=== PATIENT | male | born 1970 | race Caucasian/White ===

== ENCOUNTER 2018-07-09 05:14 | Inpatient (IN) ==
[2018-07-09] MEDS ORDERED: ceFAZolin 2 GM IV; once IV.SIG PRN (05:52)
[2018-07-09] MEDS ORDERED: Chlorhexidine Gluconate 2% 1 Pack (2 Cloths) TOPICAL ONE (05:57)
[2018-07-09] MEDS ORDERED: Metoprolol Tartrate 25 MG Tablet PO ONE (05:57)
[2018-07-09] MEDS ORDERED: Sodium Chlor 0.9% Inj 500 ML IV.SIG SCH (06:00)
[2018-07-09] MEDS ORDERED: Bupivacaine/Epinephrine Inj 0.25% 50 ML Vial ONE (07:05)
[2018-07-09] MEDS ORDERED: Succinylcholine Inj 100 MG/5 ML Syringe IV.PUSH ONE (07:21)
[2018-07-09] MEDS ORDERED: Lidocaine PF 1% Inj 5 ML Syringe OTHER ONE (07:21)
[2018-07-09] MEDS ORDERED: Sugammadex Inj 200 MG/2 ML Vial IV.PUSH ONE (08:30)
[2018-07-09] MEDS ORDERED: HYDROmorphone PF Inj 2 MG/ML Vial ONE (09:38)
[2018-07-09] MEDS ORDERED: diphenhydrAMINE HCl 12.5 MG/5 ML Elixir UDC PO PRN (09:47)
[2018-07-09] MEDS ORDERED: Acetaminophen-HYDROcodone 325/7.5 Liq 15 ML UDC PO PRN ×2 (09:47)
[2018-07-09] MEDS ORDERED: Post-op Orders (for Pharmacy) OTHER STA (10:00)
--- NOTE | 2018-07-09 10:26 | MP ---
cc: Mal Watson MD DATE OF OPERATION: 07/09/2018 PREOPERATIVE DIAGNOSES: Morbid obesity with a BMI of 43, complicated by essential hypertension, hypercholesterolemia. POSTOPERATIVE DIAGNOSES: Morbid obesity with a body mass index of 43, complicated by essential hypertension, hypercholesterolemia. PROCEDURE: Laparoscopic Johnny-en-Y gastric bypass, 100-cm Johnny limb, antegastric antecolic. SURGEON: Mal Watson MD [employer] OPERATOR: Woo Alford MD. Dr. Alford's assistance was necessary for the procedure due to the complexity of the procedure. Dr. Alford assisted with manipulation and exposure during the procedure. Other assistance was provided by Champ salvador utilizing and managing the camera. ANESTHESIA: General endotracheal anesthesia. ESTIMATED BLOOD LOSS: Scant. FINDINGS: Fatty liver. Dense omentum. SPECIMENS: None. COMPLICATIONS: None. OPERATION: The patient was brought to the operating room and placed on the operating table in supine position, bilateral sequential inflation device placed on lower extremities, general anesthesia instituted, antibiotics initiated. The abdomen was prepped and draped sterilely. A point 18-cm distal to the xiphoid in the midline anesthetized with 0.25% Marcaine with epinephrine. The skin incision was made, a 5-mm OptiView port placed under direct vision and pneumoperitoneum was created. Under direct vision a 5-mm left upper quadrant, 12-mm left upper quadrant, 12-mm right upper quadrant and 5-mm right upper quadrant ports were placed. Prior to placement of all ports, the skin and peritoneum were anesthetized with 0.25% Marcaine with epinephrine. The patient's omentum was lifted into the upper abdomen. It was split down the middle to create a path for the Johnny limb. The ligament of Treitz was identified, a point 40 cm distal identified. The small bowel was divided in this region using an [place] Flex stapler vascular load reinforced with SeamGuard. The distal segment was brought up for a distance of 100 cm, enterotomy created in this region, enterotomy in the biliopancreatic limb and a [id number] stapled jejunojejunostomy created in the usual manner. The mesenteric defect at the jejunojejunostomy was closed with 2-0 Surgidac suture in a running manner. The patient was placed in reverse Trendelenburg position with the left side up. The Daja-Flex retractor was placed. The left lobe of the liver was retracted. The angle of His was taken down bluntly, a point 5 cm distal to the GE junction along the lesser curve identified, the lesser sac entered using blunt dissection. The stomach was partitioned horizontally using an [place]-Flex stapler blue load, an additional firing taken directed towards the angle of His to completely divide the stomach. A gastrotomy created in the new stomach, enterotomy in the Johnny limb and gastrojejunostomy created, stomal opening of 2 cm. An 18-[place] orogastric tube was placed across the anastomosis, the defect then closed in two layers of running 2-0 Vicryl. Prior to placement of the second layer, methylene blue instilled through the orogastric tube. There was no evidence of extravasation. Evicel was then placed over the gastrojejunostomy, jejunojejunostomy and all staple lines. The operative field inspected and hemostasis was present. The CO2 was released, all ports were removed. All skin incisions were closed with 4-0 Monocryl. The abdominal wall was cleaned and a sterile dressing placed. The patient was awakened and taken to the recovery room. MD LORIE Perez/adriel/aaron , 09:55 AM , 10:02 AM
[2018-07-09] MEDS ORDERED: *Meperidine Inj 25 MG/ML Vial PERIprocedural Use ONLY ONE (10:37)
[2018-07-09] MEDS: KCL 20 mEq/D5W/NaCl 0.45% Inj 1,000 ML IV.CONT SCH ×2 (10:41→18:24)
[2018-07-09] MEDS ORDERED: fentaNYL Citrate Inj 100 MCG/2 ML Ampul ONE (10:52)
[2018-07-09] MEDS: Enoxaparin Inj 40 MG/0.4 ML Syringe SQ SCH (13:55)
[2018-07-09 21:10] VITALS: RESP 18
[2018-07-09] MEDS: ceFAZolin Inj 1 GM in Sodium Chlor 0.9% Inj 100 ML IV.SIG SCH (23:50)
[2018-07-10] MEDS: KCL 20 mEq/D5W/NaCl 0.45% Inj 1,000 ML IV.CONT SCH ×3 (02:24→12:32)
[2018-07-10] MEDS ORDERED: Atenolol 50 MG Tablet PO SCH (09:00)
[2018-07-10] MEDS: ceFAZolin Inj 1 GM in Sodium Chlor 0.9% Inj 100 ML IV.SIG SCH (09:17)
[2018-07-10 10:07] LABS: Baso % (Auto) 0.3 % (0.0-2.0); Hematocrit 40.9 % (39.0-51.0); Hemoglobin 13.7 gm/dL (13.0-17.0); Mean Corpuscular HGB Conc 33.5 % (32.0-36.0); Mean Corpuscular Hemoglobin 29.9 pg (27.0-34.0); Mean Corpuscular Volume 89.3 fL (80.0-100.0); Mean Platelet Volume 9.1 fL (7.0-11.0); Neut # (Auto) 10.5 th/mm3 (1.8-7.7); Neut % (Auto) 83.7 % (16.0-70.0); Platelet Count 213 th/mm3 (150-450); Red Blood Count 4.58 mil/mm3 (4.50-5.90); Red Cell Distribution Width 13.9 % (11.6-17.2); White Blood Count 12.6 th/mm3 (4.0-11.0)
[2018-07-10 10:28] LABS: Calcium 8.6 mg/dL (8.5-10.1); Carbon Dioxide 25.8 meq/L (21.0-32.0); Magnesium 2.3 mg/dL (1.5-2.5); Potassium 4.3 meq/L (3.5-5.1)
[2018-07-10 12:50] VITALS: BP 142/73; PULSE 63; TEMP 97.9; O2SAT 97
[2018-07-10] MEDS: Enoxaparin Inj 40 MG/0.4 ML Syringe SQ SCH (13:58)
--- NOTE | 2018-07-10 15:45 | P.PNGS ---
Subjective Patient reports: no new complaints, feels better, pain is less, tolerating liquids well, no flatus, no bowel movement (Pt denies SOB, dyspnea or palpitations. Meeting fluid goals, ambulating well. ) Physical Exam Vital signs: Vital Signs 07/09/18 20:00 07/09/18 22:09 07/10/18 00:00 Temperature 97.2 F L 97.9 F Pulse Rate 72 76 Respiratory Rate 18 20 18 Blood Pressure 137/63 141/55 H Pulse Oximetry 98 96 07/10/18 04:00 07/10/18 04:22 07/10/18 08:23 Temperature 97.6 F Pulse Rate 70 Respiratory Rate 18 18 Blood Pressure 127/69 Pulse Oximetry 96 98 07/10/18 09:22 07/10/18 12:50 Temperature 98.3 F 97.9 F Pulse Rate 74 63 Respiratory Rate 18 18 Blood Pressure 138/81 142/73 H Pulse Oximetry 98 97 Intake & Output 07/09/18 07/10/18 07/10/18 18:59 06:59 18:59 Intake Total 3320 / 3320 1200 / 1200 1072 / 1072 Output Total 1180 / 1180 Balance 2140 / 2140 1200 / 1200 1072 / 1072 Weight 118.8 kg Intake: IV 2400 / 2400 1200 / 1200 1072 / 1072 D5W/1/2NS + KCL 20 mEq Inj 1, 1000 / 1000 1000 / 1000 872 / 872 000 ML @ 125 mls/hr IV.CONT . Q8H KURT Rx#:[id number] LR 1000 mL Inj 1,000 ML @ 30 1000 / 1000 mls/hr IV.SIG .Q24H KURT Rx#: [id number] Ancef 2 GM Premix Inj 2 gm In 50 / 50 50 ml @ 100 mls/hr IV.SIG ASSISTANT STRENGTH COACH PRN Rx#:[id number] Ancef Inj 1 GM In NS Inj 100 ML 100 / 100 100 / 100 @ 200 mls/hr IV.SIG Q8H KURT Rx #:[id number] Ancef Inj 1,000 MG In NS Inj 100 / 100 100 ML @ 200 mls/hr IV.SIG Q8H KURT Rx#:[id number] Flagyl 500 MG Inj 100 ML @ 100 250 / 250 100 / 100 100 / 100 mls/hr IV.SIG Q8H KURT Rx#: [id number] Oral 120 / 120 Anesthesia Amount 800 / 800 Output: Urine 1150 / 1150 Estimated Blood Loss 30 / 30 Other: # Voids 3 Date of Last Bowel Movement 07/08/18 Narrative: GENERAL: SKIN: Warm and dry. HEAD: Normocephalic. EYES: No scleral icterus. No injection or drainage. NECK: Supple, trachea midline. No JVD or lymphadenopathy. CARDIOVASCULAR: Regular rate and rhythm without murmurs, gallops, or rubs. RESPIRATORY: Breath sounds equal bilaterally. No accessory muscle use. GASTROINTESTINAL: Abdomen soft, normal post operative tenderness, laparoscopic sites WNL, mildly distended. MUSCULOSKELETAL: No cyanosis, or edema. BACK: Nontender without obvious deformity. No CVA tenderness. Results - Labs 07/10/18 09:37 07/10/18 09:37 Laboratory Results - last 24 hr 07/10/18 07/10/18 09:37 09:37 WBC 12.6 H RBC 4.58 Hgb 13.7 Hct 40.9 MCV 89.3 MCH 29.9 MCHC 33.5 RDW 13.9 Plt Count 213 MPV 9.1 Neut % (Auto) 83.7 H Lymph % (Auto) 8.0 L Alfalfa % (Auto) 8.0 Eos % (Auto) 0.0 Baso % (Auto) 0.3 Neut # (Auto) 10.5 H Lymph # (Auto) 1.0 Alfalfa # (Auto) 1.0 H Eos # (Auto) 0.0 Baso # (Auto) 0.0 WBC Differential . 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 Code Status: full Discussed Condition With: patient,
== END 2018-07-10 17:20 | disposition home or self-care (01) | DRG 621 ==
LOC: HSDI 05:14 → N07 14:40
PROVIDERS: ADMIT Surgery; ATTEND Surgery
CPT/HCPCS: 80048; 83735; 85025; 86850; 86900; 86901; 94150; J0131; J0330; J0690; J1100; J1170; J1650; J2175; J2250; J2405; J2704; J2765; J3010; J3480; J7120; J8501